=== PATIENT | female | born 1935 | race Caucasian/White ===

== ENCOUNTER 2023-07-13 03:45 | Outpatient (CLI) | payer MEDICARE, SELFPAY ==
[2023-07-13] MEDS: Methacholine 100 MG VIAL IH (16:07)
[2023-07-13] MEDS: Albuterol HFA 18 GM 200 PUFF INH IH (16:07)
[2023-07-13] MEDS: Inhaler, Assist Device 1 EACH MC (16:08)
--- NOTE | 2023-07-16 13:16 | W.PFT ---
Date of service: 07/13/23 Time of Service: 14:39 Pulmonary Function Test Result Indications: Dyspnea Interpretation Spirometry: No airflow limitation at baseline. There was a 20% decrease in FEV1 with administration of 1.0mg/mL methacholine. Impression Normal baseline spirometry. Positive methacholine challenge. Clinical Correlation therefore is recommended.
== END 2023-07-13 03:46 | disposition home or self-care (01) ==
LOC: RT 03:45
PROVIDERS: PCP Family Medicine; Visit Provider Student in an Organized Health Care Education/Training Program
DX: R06.00 Dyspnea, unspecified (principal)
CPT/HCPCS: 94060; 94070; J7674

== ENCOUNTER 2023-10-08 17:06 | Outpatient (REF) | payer MEDICARE, SELFPAY ==
[2023-10-08 21:16] LABS: Abs Immature Grans 0.03 10^3/uL (0.0-0.06); Absolute Basophil Count 0.05 10^3/uL (0.0-0.2); Absolute Eosinophil Count 0.12 10^3/uL (0.0-0.7); Absolute Monocyte Count 0.53 10^3/uL (0.1-0.8); Absolute Neutrophil Count 3.53 10^3/uL (1.2-6.7); Basophils % 0.7; Eosinophils % 1.7; HCT 44.5 % (36.0-46.0); HGB 14.2 g/dL (11.2-15.7); Immature Grans % 0.4; Lymphocytes % 37.9; MCH 30.1 pg (27.0-33.0); MCHC 31.9 % (32.0-36.0); MCV 95 fL (80-95); MPV 11.6 fL (8.0-11.0); Monocytes % 7.7; Neutrophils % 51.6; Platelet Count 174 10^3/uL (130-400); RBC 4.71 10^6/uL (3.93-5.22); RDW 12.6 % (11.7-14.6); RDW-SD 43.6 fL; WBC 6.86 10^3/uL (4.4-10.8)
[2023-10-08 21:30] LABS: ALT 33 U/L (14-59); AST 31 U/L (15-37); Albumin 3.7 g/dL (3.4-5.0); Alkaline Phosphatase 81 U/L (46-116); Anion Gap 5.1 mmol/L (3-11); BUN 26 mg/dL (7-18); Bilirubin, Total 0.7 mg/dL (0.2-1.0); CO2 27.9 mmol/L (21.0-32.0); CREATININE 0.8 mg/dL (0.55-1.02); Calcium 9.9 mg/dL (8.5-10.1); Chloride 105 mmol/L (98-107); Estimated GFR 71.71 (mL/min/1.73m2); Glucose 100 mg/dL (74-106); Sodium 138 mmol/L (136-145); TSH (W/Ref FT4) 1.82 uIU/mL (0.36-3.74); Total Protein 7.2 g/dL (6.4-8.2)
[2023-10-08 21:39] LABS: Hemoglobin A1C 5.6 % (<5.7)
== END 2023-10-08 17:07 | disposition home or self-care (01) ==
LOC: NCHCN 17:06
PROVIDERS: PCP Family Medicine; Visit Provider Family Medicine
DX: I10 Essential (primary) hypertension (principal); R73.03 Prediabetes; I25.10 Atherosclerotic heart disease of native coronary artery without angina pectoris; G47.33 Obstructive sleep apnea (adult) (pediatric); E66.8 Other obesity
CPT/HCPCS: 80053; 83036; 84443; 85025

== ENCOUNTER → 2023-10-28 12:51 | Outpatient (BNVA) | payer MEDICARE, SELFPAY | PROVIDERS: PCP Family Medicine; Referring Provider Family Medicine; Visit Provider Student in an Organized Health Care Education/Training Program | DX: R06.00 Dyspnea, unspecified (principal); Z79.51 Long term (current) use of inhaled steroids; R91.8 Other nonspecific abnormal finding of lung field; I10 Essential (primary) hypertension | CPT/HCPCS: 99214 ==

== ENCOUNTER → 2024-04-25 13:07 | Outpatient (BNVA) | payer MEDICARE, SELFPAY | PROVIDERS: PCP Family Medicine; Referring Provider Family Medicine; Visit Provider Physician Assistant Surgical | DX: R06.00 Dyspnea, unspecified (principal); R91.8 Other nonspecific abnormal finding of lung field | CPT/HCPCS: 99214 ==

== ENCOUNTER 2024-05-04 15:58 | Outpatient (CLI) | payer MEDICARE, SELFPAY ==
--- NOTE | 2024-05-04 14:39 | DI.RAD_ITS ---
Exam(s) XR HIP LT COMPLETE AP PELVIS EXAM: XR HIP LT COMPLETE AP PELVIS CLINICAL HISTORY: LEFT HIP PAIN. TECHNIQUE: 2D digital imaging was performed. COMPARISON: No exams were available for comparison FINDINGS: 3 views No evidence of acute fractures. Right hip prosthesis is noted and 3 screws across left femoral neck fracture site. There is [id number] narrowing of the left hip joint space. Also degenerative subar ticular cysts evident in the left hip acetabulum.. IMPRESSION: Healed left femoral neck fracture with screws but advanced osteoarthritic degenerative changes in the left hip joint. Satisfactory appearance of the prosthesis in the opposite-right hip. DATA REPOSITORY: RADIATION DOSE DELIVERED:
== END 2024-05-04 15:59 | disposition home or self-care (01) ==
LOC: DIORS 15:59
PROVIDERS: PCP Family Medicine; Referring Provider Family Medicine; Visit Provider Student in an Organized Health Care Education/Training Program
DX: M16.52 Unilateral post-traumatic osteoarthritis, left hip; Z87.81 Personal history of (healed) traumatic fracture
CPT/HCPCS: 99213; 73502

== ENCOUNTER 2024-06-05 03:24 | Outpatient (CLI) | payer MEDICARE, SELFPAY ==
[2024-06-05 15:50] LABS: HCT 42.6 % (36.0-46.0); MCH 31.1 pg (27.0-33.0); MCHC 32.9 % (32.0-36.0); MCV 95 fL (80-95); MPV 9.9 fL (8.0-11.0); Platelet Count 161 10^3/uL (130-400); RDW 12.4 % (11.7-14.6); RDW-SD 43.2 fL; WBC 7.12 10^3/uL (4.4-10.8)
[2024-06-05 16:11] LABS: Anion Gap 6.4 mmol/L (3-11); BUN 20 mg/dL (7-18); CO2 29.6 mmol/L (21.0-32.0); CREATININE 0.6 mg/dL (0.55-1.02); Calcium 9.6 mg/dL (8.5-10.1); Chloride 105 mmol/L (98-107); Estimated GFR 86.82 (mL/min/1.73m2); Glucose 94 mg/dL (74-106); Potassium 4.5 mmol/L (3.5-5.1); Sodium 141 mmol/L (136-145)
== END 2024-06-05 03:25 | disposition home or self-care (01) ==
LOC: LBO 03:24
PROVIDERS: PCP Family Medicine; Visit Provider Student in an Organized Health Care Education/Training Program
DX: M25.552 Pain in left hip (principal); M16.52 Unilateral post-traumatic osteoarthritis, left hip; Z01.818 Encounter for other preprocedural examination; Z01.812 Encounter for preprocedural laboratory examination
CPT/HCPCS: 36415; 80048; 85027

== ENCOUNTER 2024-06-13 07:12 | Observation (INO) | payer MEDICARE, SELFPAY ==
[2024-06-13] VITALS (27 sets, daily range): BP systolic 80–132; BP diastolic 38–80; PULSE 55–70; RESP 11–18; TEMP 36.1–37; O2SAT 94–98; BMI 27.8
[2024-06-13] MEDS: Acetaminophen 500 MG TAB 1000 MG PO ×3 (06:29→21:13)
[2024-06-13] MEDS: Celecoxib 200 MG CAP 400 MG PO (06:29)
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
[2024-06-13] MEDS: Lactated Ringers 1,000 ML 80 ML IV ×2 (07:09→11:59)
[2024-06-13] MEDS: ceFAZolin 2 GM/50 ML BAG IVPB (08:11)
[2024-06-13] MEDS: TRANEXAMIC ACID/SOD. CHL. 1,000 MG/100 ML BAG 600 MG IVPB (08:26)
--- NOTE | 2024-06-13 09:45 | DI.RAD_ITS ---
Exam(s) XR HIP LT IN OR EXAM: XR HIP LT IN OR CLINICAL HISTORY: Post-traumatic osteoarthritis of left hip. TECHNIQUE: 2D digital imaging was performed. COMPARISON: No exams were available for comparison FINDINGS: Fluoroscopy provided during left hip arthroplasty. See procedure report for details. Total fluoroscopy time 43.9 seconds IMPRESSION: Radiation exposure index/cumulative dose: debi Leal= 4.0751mGy DATA REPOSITORY: RADIATION DOSE DELIVERED:
--- NOTE | 2024-06-13 10:01 | ROE_ITS ---
Date of service: 06/13/24 Time of Service: 08:20 Operative Note Operative Note DATE OF PROCEDURE: 06/13/24 PRE-OP DIAGNOSIS: Left Hip Avascular Necrosis, Arthritis, and Retained Hardware POST-OP DIAGNOSIS: same PROCEDURE: Left Anterior Total Hip Arthroplasty with Intraoperative Navigation Removal of Hardware through separate incision SURGEON: Holden Huffman LATHE SANDER: Karol Le ANESTHESIA TYPE: General LMA/ETT and Spinal Refer to Anesthesia Record ESTIMATED BLOOD LOSS: 150 PATHOLOGY: none sent TOURNIQUET TIME: 0 COMPLICATIONS: None Patient was transported to: PACU Patient's condition: stable Implants: 1. Depuy Chitina Acetabular Component, 50mm 2. Depuy Acetabular Liner, 91x00wz 3. Depuy Corail Standard 125 degree Collared Femoral Stem, Size 10 4. Depuy Altrx Ceramic Femoral Head, Size 32+5mm Indications: I have seen Teodora in clinic for symptoms of hip arthritis, confirmed with radiographic findings. She has exhausted nonoperative methods and was having significant limitations in daily function and desired better function and less pain. I discussed the technical details of a hip replacement. I explained the risks of the procedure to include, but not limited to, bleeding, infection, pain, stiffness, fracture, damage to nerves and vessels, damage to muscles and tendons, loosening, instability, leg length inequality, need for repeat procedure, blood clot and cardiopulmonary demise. Despite these risks, Teodora elected to proceed. Findings: Three 7.3 mm cannulated screws were removed without difficulty. There was significant signs of arthritis throughout the hip with deformity of the femoral head. Hip replacement was successful without identifiable fracture. Procedure Description: Teodora was greeted in the preoperative holding area where the correct side was identified and marked. The consent was reviewed with the patient and signed. The history and physical was updated. All questions were answered. She was taken back to the operating room. A spinal anesthestic was then administered. The feet were wrapped with cast padding and Coban and then placed into the boot liners and then into the boots. Care was taken to protect the skin and make sure the heels were fully down and the boots were stable. The patient was then positioned onto the HANA table. Both legs were held in a neutral position. SCDs were applied. The patient was then slid down onto a peroneal post. Prophylactic antibiotics in the form of Cefazolin were administered. 1g of Tranxemic Acid was given intravenously within 30 minutes of incision. The left leg was then prepped with Chloraprep and draped in a standard fashion. A second prep with Chloraprep was performed prior to placement of a shower-curtain type drape with Iodine impregnated skin protection. A timeout to confirm correct identity, side and site, procedure, allergies, anesthesia, and medical concerns was performed. The previously placed 7.3 mm cannula screws were then removed. A 2 cm incision was made at the previous site of screw insertion. This was taken down to the skin sharply. The pin from the 7.3 mm cannulated system was then used to percut aneously penetrate the deeper tissues and identify the screws. The screw was cannulated. The track of the pin was cut down through the IT band. The screwdriver was then used to remove the screw. This was repeated for the other 2 screws. These were all removed without difficulty. This area was then injected with a mixture of the periarticular cocktail which consisted of ropivacaine, epinephrine, clonidine, ketorolac. The wound was thoroughly irrigated. The deep tissues were closed with 2-0 Vicryl. Attention was then turned to the hip. An obliquely oriented incision was made starting lateral to the ASIS and running distal over the Tensor Fascia Jane (TFL) muscle belly toward the fibular head, approximately 10cm. The skin and soft tissue was dissected sharply, through Mikael?s fascia, and to the fascia of the TFL. During this, she was reacting to the incision where she had not previously. Therefore, the seem to be a partial setting spinal. She was converted to a general anesthesia in addition to the spinal. Now with the fascia and superior border of the IT band identified, the fascia was incised with a new knife just above any perforators from the IT band. The TFL muscle belly was bluntly dissected away from the fascia and moved laterally. The fat between TFL and rectus was identified to ensure the dissection was not within the TFL. Blunt dissection created space between abductors and the capsule and retractor was placed over the lateral femoral neck. The fibers of the rectus femoris tendon were identified and these were freed from the anterior capsule. A second cobra retractor was placed around the medial femoral neck. The TFL was further retracted laterally to show the deep fascia. Careful dissection through this layer identified three main crossing vessels of the lateral femoral circumflex. These were cauterized in multiple locations and then cut without any noticeable bleeding. The TFL was further released bluntly from the deep fascia to expose anterior hip capsule and fat The Chetan orthopaedic retractor was then placed beneath the TFL and against sartorius and medial soft tissues to protect and retract the soft tissues. A T-capsulotomy was then performed starting at the superior lateral acetabulum and moving distally to the intertrochanteric ridge. These capsular flaps were tagged with a No. 1 Ethibond and elevated from within. The capsular flaps were released to the shoulder of the lateral neck and to the lesser trochanter to give excellent visualization of the proximal femur. A neck osteotomy was performed using an oscillating saw based on preoperative templates. This cut started in the shoulder and of the lateral neck and exited medially. The saw was at all times directed medially to avoid injury to the greater trochanter. Gross traction was applied to the leg and the osteotomy opened. The femoral head was removed with a corkscrew, making sure to protect the TFL on its exit. Traction was released after head removal. This was measured on the back table to determine the starting reamer size. Portions of the rectus obscuring visualization were minimally elevated off the superior acetabulum. An anterior retractor was placed over the anterior wall between capsule and labrum and attached to the Gripper retraction system. The femur was rotated to 90 degrees and medial capsule was fully released until the lesser trochanter was palpable and visible; the femur was returned to 30 degrees. A posterior retractor was placed similarly between capsule and labrum. This provided excellent visualization. The contents of the cotyloid fossa were removed with electrocautery and the labrum was removed with a knife. There was a notable floor osteophyte. There was significant chondromalacia of the superio r acetabulum with a large anterior osteophyte. Acetabular reaming began with a 44mm reamer. This first reaming was directed anterior to posterior and medial to get down to the true floor. This was inspected and reamed until the true floor was reached. The anterior retractor was then released and entry and exit was provided by traction on the capsular flaps. I then reamed sequentially up to a 50mm reamer where good fit was obtained. The larger reamers were oriented based on anatomical reference of the anterior and lateral corbett to ensure proper abduction and anteversion. Positioning and size was confirmed with the fluoroscopy. A 50mm Depuy Chitina acetabular component was selected. The acetabulum was reamed around the periphery with the selected acetabular size to prevent a rim fit. The deep tissues were irrigated. The acetabular component was then impacted in a position of about 40-45 degrees of abduction and 15-20 degrees of anteversion, using the patient?s anatomy as th e ultimate landmark. Fluoroscopy was used to confirm this. There was excellent vp information technology of the acetabular component and the inserting handle was removed. A primary acetabular screw was placed into the ilium by drilling through one of the holes in the acetabular component. This was measured and an approrpriately sized screw was placed with excellent purchase. It was checked not to be proud. A second screw was placed in a similar fashion. The acetabular liner, Depuy [id number] polyethylene liner, was inserted and lined up with the tines of the acetabular component. There was no soft tissue inte rposition. The liner was then impacted into position and confirmed to be well- seated. A portion of the cat-articular cocktail was then injected around the acetabulum into the capsule and periosteum. This cocktail consisted of 123mg of Ropivacaine, 0.25mg of Epinephrine, 0.04mg of Clonidine, and 15mg of Ketorolac, diluted to 50cc. The leg was rotated to 120 degrees. Any remaining medial capsule was released until the lesser trochanter was easily palpable. A retractor was placed medially. The lateral capsule was further released into the shoulder to allow access to the greater trochanter. A Santo retractor was placed over the greater trochanter which allowed the trochanter to flip in front of the capsule for excellent exposure. The leg was brought down into maximal extension and 20 degrees of adduction while ensuring there was no impingement on the acetabulum. Any remnant capsule within the trochanter was released. Piriformis and obturator externis were identified and protected. There was excellent access to the proximal femur. The lateral neck remnant was removed with a rongeur. A blunt canal probe was used to identify the canal and trajectory for later broaching. A box osteotome initiated the broach course. A small curved rasp and a curved curette were used to work laterally. Broaching then began with a size 8 Corail broach. This was inserted manually around the trochanter and into the canal before mallet blows. The broach was seated to a few millimeters below the cut level based on the neck cut and the preoperative template. Sequential broaching was continued with the [employer] pneumatic broaching device until a tight fit was obtained with good rotational control of the femur. A trial standard 125 deg neck was inserted along with a +1 trial head. The leg was brought out of extension and adduction and then reduced with traction and internal rotation. The leg was stable anteriorly in a position of 30 degrees of extension and 90 degrees of external rotation. Fluoroscopy was used to ensure there was no fracture and the stem was seated well. Leg lengths were checked with an AP pelvis and pelvic reference points. Array Bridge navigation system was used to confirm appropriate positioning and leg length and offset. The goal was to lengthen by about 10 mm and increased offset by between 4 and 5 mm. Once content with the desired offset and leg lengths, the leg was brought back into extension, external rotation and adduction. The periosteum and surrounding tissue was injected with remaining portion of the cat-articular cocktail. The proximal femur was irrigated as well as the deep tissues. The Depuy Corail standard 125 degree collared stem, size 10, was then manually inserted into the proximal femur making sure to control rotation. It was then malleted into position with light blows, giving breaks to allow bone expansion and decrease risk of fracture. The selected Depuy Altrx Ceramic Head, size 32+5mm, was then placed onto the clean and dry trunnion and secured with impaction onto the tapered fit. The leg was brought back out of extension and adduction and reduced with traction and internal rotation. Stability was confirmed with no shuck at 90 degrees of external rotation and 30 degrees of extension. No impingement through range of motion arc. Final x-ray images were obtained with fluoroscopy to confirm adequate positioning and no intraoperative fracture. The deep tissues were thoroughly irrigated with Surgiphor, betadine solution. This was allowed to sit in the wound for 3 minutes before being thoroughly irrigated out with normal saline. The capsule was then reapproximated with the previously placed Ethibond sutures. The TFL fascia was finally closed with a No. 2 Stratafix, barbed suture. Deep tissues were then reapproximated with 0 Vicryl and a running 2-0 Vicryl. The skin was closed with a running 4-0 Monocryl in a subcuticular fashion. This was reinforced with skin glue. A Mepilex silver dressing was applied. At the end of the case, all counts were correct. Teodora was transferred to the hospital bed without difficulty and suffering no apparent complication. She has a good prognosis. Physical therapy will start today and without restrictions, weight-bearing as tolerated. Aspirin 81mg BID will be used for DVT prophylaxis.
--- NOTE | 2024-06-13 10:26 | W.ANESPOSTOP ---
Postoperative Evaluation Date, Time and Location Date Performed: 06/13/24 Time Performed: 10:26 Patient Location: PACU Vital Signs Most Recent Imported Vital Signs: Most Recent Vital Signs Temp Pulse Resp BP Pulse Ox 36.5 C 59 L 16 132/66 97 06/13/24 06:16 06/13/24 06:16 06/13/24 06:16 06/13/24 06:16 06/13/24 06:16 Pain Score Most Recent Pain Score: Most Recent Pain Score Pain Level 1 06/13/24 06:16 Assessment Mental Status: Awake (Alert & Oriented to Patient Baseline) Airway and Respiratory Function: Patent airway with normal (patient baseline) respiratory exam Cardiovascular Function: Hemodynamically Stable Hydration Status: Adequately Hydrated Nausea & Vomiting: No Nausea or Vomiting Pain: Pt. Denies Any Pain Peripheral Nerve Block: Patient did not receive a nerve block
--- NOTE | 2024-06-13 11:07 | W.PC.ACHO ---
Registration Status: Primary Language: Preferred Language: (Last Reviewed 06/13/24 @ 06:24 by Destiney Guerrero) Status post right hip replacement Hx of fracture of femur (07/2020) History of partial hysterectomy Hx of cholecystectomy Hx of tonsillectomy Most Recent Vital Signs Temperature 36.1 C L 06/13/24 11:00 Temperature Source Skin 06/13/24 11:00 Pulse 59 L 06/13/24 11:00 Pulse Rhythm Regular 06/13/24 06:16 Pulse 56 L 06/13/24 10:35 Respiratory Rate 17 06/13/24 11:00 Respiratory Depth Normal 06/13/24 06:16 Blood Pressure 118/56 L 06/13/24 11:00 Blood Pressure Mean 66 06/13/24 10:45 Pulse Oximetry 97 06/13/24 11:00 Respiratory End-tidal CO2 34 06/13/24 10:35 Oxygen Delivery Method Room Air 06/13/24 11:00 Oxygen Flow Rate 0 06/13/24 11:00 Pain Level 0 06/13/24 10:45 Allergies No Known Allergies Allergy (Verified 06/13/24 06:08) Active Medications Generic Name Dose Route Start Last Admin Trade Name Freq PRN Reason Stop Dose Admin Acetaminophen 1,000 mg 06/13/24 06:00 06/13/24 06:29 Acetaminophen 500 Mg Tab PO 06/13/24 12:00 1,000 mg PREOP ALAINA Administration Celecoxib 400 mg 06/13/24 06:00 06/13/24 06:29 Celecoxib 200 Mg Cap PO 06/13/24 12:00 400 mg PREOP ALAINA Administration Ringer's Solution 1,000 mls @ 80 mls/hr 06/13/24 06:00 06/13/24 10:36 IV 07/12/24 23:59 80 mls/hr INFUSION ALAINA Infusion Cefazolin Sodium/Dextrose 2 gm in 50 mls @ 100 mls/hr 06/13/24 06:00 06/13/24 08:41 Ancef Duplex IVPB 06/13/24 12:00 Infused PREOP ALAINA Infusion Tranexamic Acid/Sodium Chloride 1,000 mg in 100 mls @ 600 mls/hr 06/13/24 06:00 06/13/24 08:36 IVPB 06/13/24 12:00 Infused PREOP ALAINA Infusion IV IV Catheter Type [Left Forearm Peripheral IV ] IV Catheter Gauge [Left 20 Forearm] Diet Orders Category Date Time Status Heart Healthy Eating [DIET] Nutrition 06/13/24 Lunch Active Intake and Output - 24 Hour Total 05/08/24 08:47 thru 06/13/24 10:45 Intake Total 700 Output Total 250 Balance 450 Weight 62.4 kg Intake: IV 700 Output: Urine 100 Estimated Blood Loss 150 Other: Urine Color Yellow Urine Appearance Clear Emesis Description Retching Urinary Catheter Urinary Catheter Date of 06/13/24 Insertion [Uretheral (Landaverde)] Time of insertion [Uretheral ( 08:19 Landaverde)] v v v v v v v v v Sending and/or Receiving Nurses: Please use comment section below to note any information pertinent to the patient hand-off not included above. Information / Comments: Received post op left hip screw removal; hip total anterior coral ; report given by PACU Nurse Mike Dozier mepilex drsg is intact.Patient very much alert & oriented; sensation within normal limit. Able to slid to bed for transfer without assist. oriented manufacturing operations manager lights system. Report received from:
--- NOTE | 2024-06-13 13:16 | IN_ITS ---
PT Notes Visit Reasons: Left Hip Post-Traumatic OA Physical Therapy Inpatient Initial Evaluation Date: 06/13/2024 Referring Doctor: Holden Huffman MD PT Orders: PT CONSULT: S/P Ortho surgery. S/P hardware removal and ROMINA?left Precautions: Fall. Standard. Per Dr. Huffman WBAT on the left LE with AD. Patient Profile/Admitting Diagnosis: Teodora is an 89-year-old female with post traumatic osteoarthritis, left hip avascular necrosis, and retained hardware from ORIF with cannulated screw fixation 4 years back. She is status post left total anterior hip arthroplasty on postoperative day 0. PMHX: Surgical History (Updated 06/05/24 @ 14:41 by Teodoramalick Recinos) Status post right hip replacement Hx of fracture of femur (07/2020) Cannulated screw fixation left hip History of partial hysterectomy Hx of cholecystectomy Hx of tonsillectomy Social History/Home Situation: Lives alone in a private home with 3 steps to enter with rails on both sides. Equipment Owned/DME: Single point cane Subjective: Needed to use bathroom quickly. 1?2/10 pain in the left hip with weight bearing. Denied headache, chest pain, and lightheadedness throughout session. Objective: General Observation: Mepilex Ag over surgical incision Mental Status: Alert and oriented as to person, place, time, and purpose. Able to pay attention, focus, and respond appropriately. Pain: 1?2/10 pain in the left hip Vital Signs: Closely monitored by nursing staff ROM: Right Upper Extremity: Shoulder Flexion WFL. Shoulder abduction WFL. Elbow flexion WFL. Wrist flexion WFL. Functional opening and closing of hand WFL. Left Upper Extremity: Shoulder Flexion WFL. Shoulder abduction WFL. Elbow flexion WFL. Wrist flexion WFL. Functional opening and closing of hand WFL. Right Lower Extremity: Hip flexion WFL. Hip abduction WFL. Knee flexion WFL. Ankle dorsiflexion WFL. Ankle plantarflexion WFL. Left Lower Extremity: Hip flexion WFL. Hip abduction WFL. Knee flexion WFL. Ankle dorsiflexion WFL. Ankle plantarflexion WFL. Strength: Right Upper Extremity: Shoulder flexors []/5. Shoulder abductors []/5. Elbow flexors []/5. Elbow extensors []/5. Budget Consultant strong. Left Upper Extremity: Shoulder flexors []/5. Shoulder abductors []/5. Elbow flexors []/5. Elbow extensors []/5. Budget Consultant strong. Right Lower Extremity: Hip flexors []/5. Hip abductors []/5. Knee flexors []/5. Knee extensors []/5. Ankle dorsiflexors []/5. Ankle plantarflexors []/5. Left Lower Extremity: Hip flexors []/5. Hip abductors []/5. Knee flexors []/5. Knee extensors []/5. Ankle dorsiflexors []/5. Ankle plantarflexors []/5. Bed Mobility/Transfers: Minimal cueing provided for use of B hands as needed for support, movement sequence, AD management, and posture to reduce fall risk and minimize pain report Supine to sit standby assist Sit to stand contact-guard assist with FWW Stand to sit contact-guard assist with FWW Bed to reclining chair contact-guard assist with FWW Gait: Facilitated safe and correct performance of level surface ambulation covering a distance of 250 feet using front wheeled walker with step to gait pattern requiring contact-guard assist and minimal verbal cueing for safe limb advancement, AD management, weight distribution, and posture to minimize fall risk and reduce pain report. Stairs: Not tested Balance: Static Sitting: Normal Dynamic Sitting: Normal Static Standing: Fair Dynamic Standing: Fair Special Tests: Mobility Limitations Standardized Measure [facility] AM-PAC 6 clicks Basic Mobility Inpatient Short Form: Raw Score: 22 CMS Score: 21% deficit Informed Consent/Education: Patient was instructed in purpose of PT consult and plan of care. Agreeable to proceed with established PT POC to achieve personal goals. Trained patient with correct performance of exercises below to maximize motor control, joint flexibility, soft tissue extensibility of the L hip musculature to facilitate return to independent functional mobility performance. Access Code: [email or web address] URL: [email or web address] Date: 06/13/2024 Prepared by: Soha Sun Exercises - Gluteal Sets - 1 x daily - 7 x weekly - 1 sets - 10 reps - 5 hold - Supine Heel Slide - 1 x daily - 7 x weekly - 1 sets - 10 reps - 5 hold - Supine Ankle Pumps - 1 x daily - 7 x weekly - 1 sets - 10 reps - 5 hold - Seated March - 1 x daily - 7 x weekly - 1 sets - 10 reps - 5 hold - Seated Long Arc Quad - 1 x daily - 7 x weekly - 1 sets - 10 reps - 5 hold Assessment: Patient requires use of front wheeled walker for all mobility ADL performance to maximize independence and reduce fall risk. Patient presents with clinical signs and symptoms consistent with current/admitting diagnoses that have resulted to mobility limitations, gait instability, generalized weakness, and overall ADL decline as demonstrated by the following impairment level findings: 1. Decreased strength to L hip major muscle groups 2. Impaired sitting/standing balance 3. Impaired activity tolerance 4. Limitation of joint range of motion in L hip Impairments are contributing to the following functional limitations: 1. Decline in bed mobility skills 2. Decline in transfer skills 3. Difficulty with ambulation without assistive device and physical assistance 4. Increased completion time for mobility ADL performance 5. Increased risk for falls 6. Difficulty with managing steps alone safely Patient is assessed as a 22330 moderate complexity based on the following: History: 84-year-old female with past medical history as indicated above Examination: Demonstrable impairment in strength, balance, and mobility level with underlying impairments and functional limitations as exhibited above as well as deficit score of 21% utilizing the [facility] Mobility Inpatient Short Form Presentation: Evolving Decision Makin moderate complexity Goals: Goals X1 week 1. Supine-Sit independent 2. Sit-Supine independent 3. Sit-Stand independent 4. Stand-Sit independent with FWW 5. Bed-Chair independent with FWW 6. Chair-Bed independent with FWW 7. Independent gait on level surface with use of FWW for at least 300 feet without report of pain nor dyspnea 8. Independent stair negotiation while holding onto B rails for at least 3 steps without report of pain nor dyspnea 9. Independent with home exercise program 10. Good static and dynamic standing balance/tolerance Plan of Care/Treatment Plan: 1-2x/day, 7 days/week x 1 week. Plan of care has been reviewed with the INKING MACHINE TENDER providing the service under Physical Therapy direction. Initiate Physical Therapy intervention for pain management as needed, strengthening, bed mobility, transfers, gait, stairs, balance training, and use of assistive device. --Progress ambulation level with FWW, train on stair Okay for this afternoon that the third already meeting no way about that, negotiation and retrain on HEP prior to tomorrow'as discharge. DISCHARGE RECOMMENDATIONS: Home when medically cleared by orthopedic surgeon. Recommend outpatient PT services in order to optimize functional mobility outcomes and facilitate return to independent community ambulation without an assistive device. TREATMENT CODE/TIME: 9716 2 x 20 minutes for 1 unit, 9753 0 x 10 minutes for 1 unit (12:50-13:25) Thank you for the opportunity to participate in the care of this patient. Soha Sun PT, DPT, CLT [facility] [place], [place]
--- NOTE | 2024-06-13 13:33 | W.NUTRFU ---
Date of service: 06/13/24 Time of Service: 12:00 Nutrition Note NOTE: Teodora is 89yo female admitted for post-traumatic osteoarthritis of L hip and hx of CALVIN, obesity, prediabetes (pt says she is not prediabetic and takes the dapagliflozin for her heart, not her glucose), CAD, HLD and HTN. Pt watches sodium- buys low salt chips and mixed nuts, tries to read labels for sodium. A1c was 5.6% last september, and per surgical note was 5.6% again this March. Ordered for heart healthy diet with normal consistencies. Pt with fair to good appetite/intake and reports not significant weight concerns. She reviewed her usual diet and this tends to be lower in protein from what she describes and also high in refined starch. offered outpatient services anytime she would like to get into menu planning. She did take my card in case she would like to in the future. Pt feels her diet should be liberalized during her stay considering her age. Agreed to liberalize to low sodium as this change will not impact her course of care here/clinically insignificant. Will continue to follow for any changes in nutrition status Time Spent in Nutritional Counseling and Treatment: 10 min
[2024-06-13] MEDS: ceFAZolin 1 GM/50 ML BAG IVPB (15:18)
--- NOTE | 2024-06-13 15:42 | PHA.REVIEW2 ---
Pharmacy Admission Review Admission Clinical Review Admission Pharmacy Review: No Known Allergies Allergy (Verified 06/13/24 06:08) Resuscitation Status Full Code Height 4 ft 11 in Weight 67.676 kg Comments Comments/Follow Ups: POD #0 left hip OA Pharmacy Admission Review Renal Dosing Medications needing adjustments: Reviewed (CrCl 42.34 mL/min) List of meds needing interventions: Current medications are okay Anticoagulation DVT Prophylaxis: Reviewed Medications: Aspirin (81mg BID) Relevant Labs Electrolytes, C-Reactive P, ESR: Reviewed (No labs for today) Cardiac Review Cardiac Review: Blood Pressure 95/52 1520 Blood Pressure 100/55 1412 Blood Pressure 80/50 1325 Blood Pressure 105/60 1209 Blood Pressure 98/59 1130 Blood Pressure 109/57 1117 Blood Pressure 118/56 1107 Blood Pressure 118/56 1100 BP, HR, EF%: Reviewed (HR WNL) QTc Review QTc: Reviewed (No EKG on file) IV to PO Switch IV Medications: Reviewed (ondansetron and cefazolin) Home Meds Home Med List reviewed: Intervened Relevent Home Meds Not ordered & why?: Dulera (substituted with Symbicort per pharmacy protocol), glucosamine and multivitamin Current Meds Current Medication Order Review: Reviewed Pharmacy Antibiotic Review Pharmacy Antibiotic Activity: Reviewed, no change Comments: Cefazolin 1g q8h post op Comments Comments/Follow Ups: POD #0 left hip OA
[2024-06-13] MEDS: Celecoxib 200 MG CAP PO (21:13)
[2024-06-14] MEDS: ceFAZolin 1 GM/50 ML BAG IVPB ×2 (00:59→08:49)
[2024-06-14] MEDS: Lactated Ringers 1,000 ML 80 ML IV (01:00)
[2024-06-14 03:30] VITALS: BP 100/60; PULSE 72; RESP 18; TEMP 36.6; O2SAT 98
[2024-06-14] MEDS: traMADol 50 MG TAB PO (05:06)
[2024-06-14 07:31] VITALS: BP 101/67; PULSE 67; RESP 18; TEMP 36.3; O2SAT 97
[2024-06-14] MEDS: Acetaminophen 500 MG TAB 1000 MG PO (08:47)
[2024-06-14] MEDS: Dexamethasone 4 MG TAB PO (08:47)
[2024-06-14] MEDS: Pantoprazole 40 MG TABCR PO (08:48)
[2024-06-14] MEDS: Celecoxib 200 MG CAP PO (08:48)
[2024-06-14] MEDS: Aspirin E.C. 81 MG TABEC PO (08:48)
[2024-06-14] MEDS: Normal Saline Flush 10 ML SYR IV (08:50)
--- NOTE | 2024-06-14 10:24 | DSE_ITS ---
Date of service: 06/14/24 Time of Service: 10:24 DS: Diagnosis Discharge Diagnosis (1) Post-traumatic osteoarthritis of left hip: Status: Chronic Discharge Plan Disposition Patient Disposition: Home W/Home Health Services Condition: Good Discharge Details Reason For Visit: Left Hip Post-Traumatic OA Admit Date/Time: 06/13/24 07:12 Admit Provider: Holden Huffman Attending Provider: Holden Huffman Primary Care Provider: Tiana Castellon [place] [facility] Hospital Course: Patient was admitted to the medical/surgical floor following the procedure. The surgery was tolerated well without any notable medical, surgical, or anesthetic complications. Mobilization began postoperatively. She was voiding s pontaneously. Vitals were stable. Physical therapy worked with the patient and was cleared for discharge home. No acute medical issues. Pain was controlled on oral regimen. Home Meds and New Rx's Prescriptions: New acetaminophen 500 mg tablet 1,000 mg PO Q8H PRN (Reason: pain) Qty: 90 3RF celecoxib 200 mg capsule 200 mg PO BID PRN (Reason: pain) Qty: 60 1RF tramadol 50 mg tablet 50 mg PO Q4H PRNQty: 12 0RF Continued calcium See Rx Instructions .ROUTE DIRECTED Rx Instructions: as directed; prevagen See Rx Instructions .ROUTE DIRECTED Rx Instructions: as directed; Centravites 50 Plus Tablet 1 tab PO DIRECTED glucosamine HCl 750 mg tablet 750 mg PO DIRECTED Rx Instructions: administer with a meal atorvastatin 20 mg tablet 20 mg PO DAILY metoprolol tartrate 25 mg tablet 25 mg PO BID Farxiga 10 mg tablet 10 mg PO DAILY Entresto 24-26 mg tablet 1 tab PO BID Patient Comments: patient reports she only takes 1/2 tablet at HS albuterol sulfate [Ventolin HFA] 90 mcg/actuation HFA aerosol inhaler 2 puff inhalation Q6H PRN (Reason: shortness of breath or wheezing) Qty: 8.5 12RF Dulera 100-5 mcg/actuation HFA aerosol inhaler 2 puff inhalation DAILY Changed aspirin 81 mg tablet,delayed release (DR/EC) 81 mg PO BID Qty: 60 0RF Discharge Instructions Additional Instructions: Total Hip Discharge Instructions Activity: The most important activity is to walk. You should try to take short walks a few times a day. You have no restrictions on movement or positioning, but do not try to force what you do. You will find some stiffness and weakness with hip flexion (lifting your knee). Do not try to strengthen this too early, continue to practice walking and stairs and this will come. - Home health physical will be ordered to assist you in recovery and funcational independence. - You should wear the MICA hose on both legs for 2 weeks. Dressing: Keep the surgical dressing in place for at least one week although it can stay in place until your follow-up. After the first week it may be removed and replace with light gauze and tape or nothing. It may get wet after 3 days but avoid soaking the dressing. If it gets wet, just lightly pat dry. It is important to always keep some gauze between skin folds, especially when you are sitting. Spend some time with the wound exposed when you are lying flat as the incision does wrinkle onto itself. Medications: - You should take Tylenol and an anti-inflammatory Celebrex as your primary pain control medications. If the Celebrex is too expensive or not covered, please call the office for another alternative (Advil/Ibuprofen or Naproxen/Aleve). - You have been prescribed a stronger pain medication Tramadol for breakthrough pain, take as needed as prescribed. - You will be taking Aspirin 81mg twice a day for DVT prevention for 30 days and then return to your daily baby Aspirin. - If you have constipation you should take Colace or Miralax (both [id number]). It takes most people 3-4 days to have a bowel movement. Follow-up: 2 weeks If you have any acute concerns or questions, please do not hesitate to contact the office at [phone]. You may contact Dr. Huffman with any questions after hours through the hospital at [phone] or on his cell phone at [phone]. 1. Encounter Date and Reason I certify that Teodora Steen Rylan was seen by Holden Huffman MD on 06/14/24 and that I had a [id number] encounter with this patient that meets the physician face to face encounter requirements. 2. Clinical Findings Supporting Skilled Need and Homebound Status I certify that home health services are medically necessary, include either intermittent long term and/or physical/speech therapy, and that this patient is homebound in that absences from the home require considerable and taxing effort and are infrequent or of short duration, or are attributable to the need to receive medical care. [X] (a) Attached documentation from encounter provides clinical findings supporting skilled need and homebound status (including what assistance patient requires to leave the home). The encounter with the patient was in whole, or in part, for the following medical condition, which is the primary reason for home health care: Left Hip Post-Traumatic OA Half-Way: Physical Therapy: Teodora will benefit from home health nursing due to notable weakness, gait dysfunction and limited range of motion following hardware removal and hip replacement at the left hip. This was performed an anterior approach and she has no restrictions on positioning. She is weightbearing as tolerated with assistive devices at all times. Speech Therapy: Homebound: Teodora is unable to leave her home unassisted due to weakness and gait dysfunction. 3. Certification and Authentication I certify that I composed the above information based on my clinical judgement relating to this patient's medical condition and, if applicable, clinical findings communicated to me by the NPP or inpatient physician who performed the Home Health Referral. All further orders will be obtained through Dr. Huffman Referrals: Holden Huffman MD [ [facility] ST[facility]FF PHYSICIAN] - Activity:: Activity as Tolerated Equipment/Supplies:: Walker Diet:: As Tolerated Discharge Orders Discharge Orders: Discharge Order (Routine); Ordered 06/14/24 Ordered By: Holden Huffman DS: Summary Time Spent with Patient providing and/or coordinating discharge services: Greater than 30 minutes Status at Discharge Functional status at discharge: uses cane/walker Overall status at discharge: patient is progressing back to baseline Mental Status: mental status grossly normal Speech and Movement: speech and movement normal Mood: congruent mood Affect: normal affect Quality:SDOH Health Related Social Needs: Health related social needs details none, Health related social needs details: none Referrals and interventions: none Exam Narrative Exam Narrative: Sitting up in the chair. No acute distress. Alert and orient x 3. Evaluation of the left leg shows some swelling about the thigh. Mild ecch ymosis. Dressings are clean dry and intact. She is able to actively extend and flex left knee as well as extend and flex the ankle and extend and flex the toe. She has no significant pain with internal/external rotation of the hip. Sensation intact to light touch over the femoral, lateral cutaneous, and sciatic nerve distributions. Foot is warm and well-perfused with a palpable DP pulse. Psych Mental Status: mental status grossly normal Speech and Movement: speech and movement normal Mood: congruent mood Affect: normal affect DS: Data Vitals/I&O Vitals and I&O: Vital Signs Temperature 36.3 C L 06/14/24 07:31 Temperature Source Temporal Artery Scan 06/14/24 07:31 Pulse 67 06/14/24 07:31 Pulse Rhythm Regular 06/13/24 22:20 Pulse 56 L 06/13/24 10:35 Respiratory Rate 18 06/14/24 07:31 Respiratory Effort Normal 06/13/24 22:20 Respiratory Depth Normal 06/13/24 22:20 Respiratory Pattern Normal 06/13/24 22:20 Blood Pressure 101/67 06/14/24 07:31 Blood Pressure Mean 66 06/13/24 10:45 Pulse Oximetry 97 06/14/24 07:31 Respiratory End-tidal CO2 34 06/13/24 10:35 Oxygen Delivery Method Room Air 06/14/24 07:31 Oxygen Flow Rate 0 06/14/24 07:31 Pain Level 2 06/14/24 08:47 Intake & Output 06/13/24 06/13/24 06/14/24 11:59 23:59 11:59 Intake Total 810.667 / 1021.334 210.667 / 3243.049 7884 / 1050 Output Total 250 / 850 600 / 850 900 / 900 Balance 560.667 / 171.334 -389.333 / 171.334 150 / 150 Weight 67.676 kg Intake: IV 810.667 / 1021.334 210.667 / 9687.455 4543 / 1050 Output: Urine 100 / 700 600 / 700 900 / 900 Estimated Blood Loss 150 / 150 Other: Urine Color Yellow Yellow Straw Urine Appearance Clear Clear Clear Urine Odor Normal Emesis Description Retching Voiding Methods Toilet Toilet PFSH All Active Problems CALVIN (obstructive sleep apnea) (Chronic) CPAP Post-traumatic osteoarthritis of left hip (Chronic) Allergies (Acute) Pulmonary nodules (Acute) Dyspnea (Acute) Obesity (Chronic) Osteoarthritis (Chronic) Coronary artery disease (Chronic) Prediabetes (Acute) Hyperlipidemia (Acute) Hypertension, benign (Acute) Surgical History Status post right hip replacement Hx of fracture of femur (07/2020) Cannulated screw fixation left hip History of partial hysterectomy Hx of cholecystectomy Hx of tonsillectomy Social History Smoking/Tobacco Use Status: Former Tobacco Use Quit Date: 11/29/83 Smoking risk assessment performed?: Yes Alcohol Intake: never Drug use: Never Substance use type: does not use Housing: condominium Do you feel safe at home: Yes Do you feel safe in your relationship?: Yes Additional Social history: [facility] Time Spent with Patient Time Spent with Patient: <45 minutes Time was spent: preparing to see the patient(eg.review tests), obtaining and/or reviewing separately otained hiistory, indepentently interpreting results and counseling the patient
--- NOTE | 2024-06-14 10:57 | PT.INTREAT ---
PT Notes Visit Reasons: Left Hip Post-Traumatic OA Physical Therapy Inpatient Treatment Note Date: 06/14/2024 Precautions: Fall. Standard. Per Dr. Huffman WBAT on the left LE with AD. Equipment Owned/DME: Single point cane Subjective: Looking forward to going home today. Feels safe and confident with managing ambulation on her own using a front wheeled walker. Denied headache, chest pain, and lightheadedness throughout session. Objective: General Observation: Mepilex Ag over surgical incision Mental Status: Alert and oriented as to person, place, time, and purpose. Able to pay attention, focus, and respond appropriately. Pain: 1?210 pain in the left hip Vital Signs: Closely monitored by nursing staff Bed Mobility/Transfers: Minimal cueing provided for use of B hands as needed for support, movement sequence, AD management, and posture to reduce fall risk and minimize pain report Supine to sit supervision Sit to stand supervision with FWW Stand to sit supervision with FWW Bed to reclining chair supervision with FWW Gait: Facilitated safe and correct performance of level surface ambulation covering a distance of 300 feet using front wheeled walker with step to gait pattern requiring standby assist and minimal verbal cueing for safe limb advancement, AD management, weight distribution, and posture to minimize fall risk and reduce pain report. Stairs: Guided patient with safe and correct negotiation of 6 x 4 inch steps and 2 x 6 inch steps while holding onto bilateral lower EXTR with step to gait pattern requiring minimal verbal cueing for safe movement sequence, hand placement, and posture to minimize pain report and reduce fall risk. Balance: Static Sitting: Normal Dynamic Sitting: Normal Static Standing: Fair Dynamic Standing: Fair THERA ACT: Trained patient with correct performance of exercises below to maximize motor control, joint flexibility, soft tissue extensibility of the L hip musculature to facilitate return to independent functional mobility performance. Access Code: [email or web address] URL: [email or web address] Date: 06/13/2024 Prepared by: Soha Sun Exercises - Gluteal Sets - 1 x daily - 7 x weekly - 1 sets - 10 reps - 5 hold - Supine Heel Slide - 1 x daily - 7 x weekly - 1 sets - 10 reps - 5 hold - Supine Ankle Pumps - 1 x daily - 7 x weekly - 1 sets - 10 reps - 5 hold - Seated March - 1 x daily - 7 x weekly - 1 sets - 10 reps - 5 hold - Seated Long Arc Quad - 1 x daily - 7 x weekly - 1 sets - 10 reps - 5 hold Assessment: Patient requires use of front-wheeled walker for all mobility ADL performance to maximize independence and reduce fall risk. DISCHARGE RECOMMENDATIONS: Home when medically cleared by orthopedic surgeon. Recommend outpatient PT services in order to optimize functional mobility outcomes and facilitate return to independent community ambulation without an assistive device. TREATMENT CODE/TIME: 79888 x 18 minutes for 1 unit (10:37-10:55)
[2024-06-14 11:20] VITALS: BP 98/56; PULSE 69; RESP 20; TEMP 36.4; O2SAT 94
--- NOTE | 2024-06-14 14:11 | CHAPLAIN ---
Teodora was up in the chair when I visited. She said she'd had hip surgery with Dr. Huffman. She lives very close to [facility] in [place], but two family members had Dr. Og for surgery so she decided to come here as well. She expects to be discharged today.
== END 2024-06-14 12:21 | disposition home health service (06) ==
LOC: MS 10:58
PROVIDERS: Admitting Provider Student in an Organized Health Care Education/Training Program; PCP Family Medicine; Visit Provider Student in an Organized Health Care Education/Training Program
PROC: (CPT 27130; principal; 2024-06-13 07:30)
PROC: (CPT 20985; 2024-06-13 07:30)
DX: M16.52 Unilateral post-traumatic osteoarthritis, left hip (principal); R91.8 Other nonspecific abnormal finding of lung field; I10 Essential (primary) hypertension; E78.5 Hyperlipidemia, unspecified; I25.10 Atherosclerotic heart disease of native coronary artery without angina pectoris; R73.03 Prediabetes; E66.9 Obesity, unspecified; G47.33 Obstructive sleep apnea (adult) (pediatric); Z68.30 Body mass index [BMI] 30.0-30.9, adult; J45.909 Unspecified asthma, uncomplicated
CPT/HCPCS: 20985; 27130; 00123; 97162; 97530; 73501; C1776; G0378; J0690; J2371; J2401; J2405; J2704; J8540

== ENCOUNTER 2024-06-26 15:24 | Outpatient (CLI) | payer MEDICARE, SELFPAY ==
--- NOTE | 2024-06-26 14:30 | DI.RAD_ITS ---
Exam(s) XR HIP LT COMPLETE AP PELVIS EXAM: XR HIP LT COMPLETE AP PELVIS INDICATION: F/U LEFT ROMINA. COMPARISON: CR XR HIP LT COMPLETE AP PELVIS from 05/04/2024 XA XR HIP LT IN OR from 06/13/2024 TECHNIQUE: 2D digital imaging was performed. Two views. FINDINGS: Stable alignment of bilateral hip prostheses. No abnormal bony lucencies. No new abnormalities. DATA REPOSITORY: RADIATION DOSE DELIVERED:
== END 2024-06-26 15:25 | disposition home or self-care (01) ==
LOC: DIORS 15:24
PROVIDERS: PCP Family Medicine; Referring Provider Family Medicine; Visit Provider Student in an Organized Health Care Education/Training Program
DX: Z47.1 Aftercare following joint replacement surgery; Z96.642 Presence of left artificial hip joint; Z87.81 Personal history of (healed) traumatic fracture
CPT/HCPCS: 73502

== ENCOUNTER → 2024-07-24 14:26 | Outpatient (BNVA) | payer MEDICARE, SELFPAY | PROVIDERS: PCP Family Medicine; Referring Provider Family Medicine; Visit Provider Physician Assistant | DX: Z96.642 Presence of left artificial hip joint (principal) ==

== ENCOUNTER 2024-08-08 15:30 | Outpatient (CLI) | payer MEDICARE, SELFPAY ==
--- NOTE | 2024-08-08 15:11 | DI.RAD_ITS ---
Exam(s) XR SHOULDER RT COMPLETE 2+V EXAM: XR SHOULDER RT COMPLETE 2+V CLINICAL HISTORY: right shoulder pain. TECHNIQUE: 2D digital imaging was performed. Two views. COMPARISON: No exams were available for comparison FINDINGS: BONES: No acute fracture is present. No bony destructive lesion is seen. Deformity of the undersurfa ce of the acromion. Findings indicate chronic rotator cuff tear. Bony densities adjacent to acromio n. JOINTS: Severe degenerative changes at the glenohumeral joint. Prominent spurring at the femoral hea d and undersurface of the acromion. SOFT TISSUE: Normal. IMPRESSION: Severe degenerative changes. DATA REPOSITORY: RADIATION DOSE DELIVERED:
== END 2024-08-08 15:31 | disposition home or self-care (01) ==
LOC: DIORS 15:30
PROVIDERS: PCP Family Medicine; Referring Provider Family Medicine; Visit Provider Student in an Organized Health Care Education/Training Program
DX: M19.011 Primary osteoarthritis, right shoulder; M75.101 Unspecified rotator cuff tear or rupture of right shoulder, not specified as traumatic
CPT/HCPCS: 99213; 73030

== ENCOUNTER → 2024-10-24 12:30 | Outpatient (BNVA) | payer MEDICARE, SELFPAY | PROVIDERS: PCP Family Medicine; Referring Provider Family Medicine; Visit Provider Physician Assistant Surgical | DX: J45.909 Unspecified asthma, uncomplicated (principal); R91.8 Other nonspecific abnormal finding of lung field; R06.00 Dyspnea, unspecified | CPT/HCPCS: 99214 ==

== ENCOUNTER → 2025-04-25 13:46 | Outpatient (BNVA) | payer MEDICARE, SELFPAY | PROVIDERS: PCP Family Medicine; Referring Provider Family Medicine; Visit Provider Physician Assistant Surgical | DX: R06.00 Dyspnea, unspecified (principal); R91.8 Other nonspecific abnormal finding of lung field | CPT/HCPCS: 99214 ==

== ENCOUNTER 2025-06-14 13:10 | Outpatient (CLI) | payer MEDICARE, SELFPAY ==
--- NOTE | 2025-06-14 12:45 | DI.RAD_ITS ---
Exam(s) XR HIP LT AP LAT ONLY EXAM: XR HIP LT AP LAT ONLY CLINICAL HISTORY: ANNUAL F/U L ROMINA. TECHNIQUE: 2D digital imaging was performed. COMPARISON: CR XR HIP LT COMPLETE AP PELVIS from 06/26/2024 FINDINGS: Two views There is stable position alignment of the components of the left hip prosthesis. No fracture or loosening evident. No radiographic evidence of osteomyelitis. IMPRESSION: Stable satisfactory appearance DATA REPOSITORY: RADIATION DOSE DELIVERED:
== END 2025-06-14 13:11 | disposition home or self-care (01) ==
LOC: DIORS 13:11
PROVIDERS: PCP Family Medicine; Referring Provider Family Medicine; Visit Provider Student in an Organized Health Care Education/Training Program
DX: Z47.1 Aftercare following joint replacement surgery (principal); Z96.642 Presence of left artificial hip joint
CPT/HCPCS: 99212; 73502